=== PATIENT | male | born 1950 | race Caucasian/White ===

== ENCOUNTER 2018-09-14 11:40 | Emergency (ER) | payer OTHER, MEDICARE ==
[~2018-09-14] VITALS: Ht 175.3 cm; Wt 83.9 kg
[2018-09-14] MEDS ORDERED: PROZAC10 MG PO (12:09)
[2018-09-14] MEDS ORDERED: NORVASC5 MG PO (12:09)
[2018-09-14] MEDS ORDERED: ACYCLOVIR 400400 MG PO (12:09)
[2018-09-14] MEDS ORDERED: FLONASE 0.05%50 MCG NASAL (12:09)
[2018-09-14] MEDS ORDERED: LIPITOR10 MG PO (12:09)
[2018-09-14] MEDS ORDERED: HYDROCODONE-IB1 EAC3 PO (12:10)
[2018-09-14] MEDS ORDERED: SYNTHROID112 MC1 PO (12:11)
[2018-09-14] MEDS ORDERED: FLOMAX0.4 MG PO (12:11)
[2018-09-14] MEDS ORDERED: VENTOLIN HFA 1818 GM INH (12:11)
[2018-09-14] MEDS ORDERED: OMEPRAZOLE20 M1 PO (12:12)
[2018-09-14] MEDS ORDERED: SINGULAIR 10 MG10 M1 PO (12:12)
[2018-09-14] MEDS ORDERED: NORCO 5-325 TA1 EAC1 PO (12:15)
[2018-09-14] MEDS ORDERED: FLEXERIL PO (12:15)
[2018-09-14] MEDS ORDERED: MEDROLDOSEPACK PO (12:15)
[2018-09-14 12:41] VITALS: BP 165/93
== END 2018-09-14 12:42 | disposition home or self-care (01) ==
LOC: M.ERS 11:40
DX: M54.16 Radiculopathy, lumbar region (principal); Z88.5 Allergy status to narcotic agent